=== PATIENT | male | born 1995 | race Caucasian/White ===

== ENCOUNTER 2021-12-30 03:36 | Inpatient (IN) | payer BC, SELFPAY ==
[2021-12-30 04:28] VITALS: BP 124/84; PULSE 85; RESP 16; TEMP 36.4; O2SAT 100; BMI 25.5
[2021-12-30 04:34] VITALS: BP 125/62; PULSE 77; RESP 18; TEMP 36.4; O2SAT 100
--- NOTE | 2021-12-30 05:07 | PC.ADMIT ---
Pt is a 26 years old male transferred from [place], for impatient level of care after Pt reported to the [facility] department of increased depression and intrusive thoughts of SI. Pt is covid negative, Tox negative, VSS, Pt denies SI/HI/AH/VH at this time. Pt appears sad. when asked pt endorsed being sad. Pt reports that his mood has worsened and he experiences a vague feeling to act on these thoughts . Pt reports that he lives with his parents at [place], [place]. 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 He reports reaching out to an online prescriber for help. the prescriber prescribed Sertraline 100mg. Pt reports the medication was helpful initially but now feels that it is making his depression and suicidal thoughts worse/more intense. Admission orders obtained.
[2021-12-30 06:00] VITALS: BP 120/65; PULSE 87; RESP 14; O2SAT 100
[2021-12-30] MEDS: Sertraline HCL 100 MG TABLET PO (08:30)
--- NOTE | 2021-12-30 10:02 | HO.PSYADMNOT ---
HPI Date of Service: 12/30/21 Chief Complaint: MDD, single episode, moderate Sources of Information: patient interviewed, chart reviewed and crisis/core team assessment reviewed HPI Subjective Notes: Monsalve Warning and Conditional Voluntary Narrative: Mr. Vyas is a 26 year-old male with hx of MDD. 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 He was sectioned to [facility]. In the ED his utox was neg. On the unit, pt presents as very pessimistic. He reports being here against his will. He does admit that for the past 2 months he has been feeling increasingly more depressed, hopeless. He reports he has not accomplish anything is his life. He reports he wanted to join the but due to generalized esential tremors he does not qualify. He feels he also screw up his chance of doing something that he likes like joining fire department by disclosing suicidal thoughts. He reports feeling anxious. He reports about 2 months ago he has been seeing prescriber for depression, currently on sertraline, which he reports felt was helpful at beginning but not anymore. He lives with his parents but he reports he does not think they know how depressed he is neither he wants to tell them. He appears very pessimistic in that non of treatment options he thinks will work despite never tried them. He denies hx of VH/AH. He denies hx suggestive of hypomania or lukasz. Past Psychiatric History: Inpatient: none prior OP: sees prescriber online, unknown name suicide attempts: none past med trials: sertraline Medical Evaluation Reviewed: Yes [facility] Medical History (Updated 01/02/22 @ 07:43 by Kamryn Calhoun) Depression Family History: sister with depression Social History: lives with parents and sister. completed HS. working at [employer]. no children. Substance History: none Trauma History: denies. Diagnostics Vital Signs (24Hr): Vital Signs - 24 hr 12/30/21 04:28 12/30/21 04:34 12/30/21 06:00 Temperature 97.6 F 97.5 F Pulse Rate 85 77 87 Respiratory Rate 16 18 14 Blood Pressure 124/84 125/62 120/65 Pulse Oximetry 100 100 100 BMI result Body Mass Index 25.5 Meds/Allergies Meds Home Medications Acetaminophen (Acetaminophen 325 Mg Tablet) 650 mg PO Q6H PRN PRN Reason: Headache/Pain Mild Scale (1-3) Al Hydroxide/Mg Hydroxide (Magnesium Hydrox/Alum Hydrox 30 Ml Oral.Susp) 30 ml PO Q6H PRN PRN Reason: Heartburn/Nausea Clonazepam (Clonazepam 0.5 Mg Tablet) 0.5 mg PO BID [facility] Last Admin: 01/01/22 21:54 Dose: 0.5 mg Documented by: Hydroxyzine HCl (Hydroxyzine Hcl 25 Mg Tablet) 25 mg PO Q6H PRN PRN Reason: Anxiety Magnesium Hydroxide (Milk Of Magnesia 30 Ml Oral.Susp) 30 ml PO DAILY PRN PRN Reason: Constipation Sertraline HCl (Sertraline Hcl 100 Mg Tablet) 100 mg PO DAILY [facility] Last Admin: 01/01/22 08:32 Dose: 100 mg Documented by: Trazodone HCl (Trazodone Hcl 50 Mg Tablet) 50 mg PO BEDTIME PRN PRN Reason: Insomnia Venlafaxine HCl (Venlafaxine Hcl Er 37.5 Mg Cap.Er.24h) 37.5 mg PO DAILY [facility] Last Admin: 01/01/22 08:32 Dose: 37.5 mg Documented by: Allergies Allergies Allergy/AdvReac Type Severity Reaction Status Date / Time cat dander [cats] Allergy Mild Runny Nose Verified 12/30/21 04:26 Mental Status Exam Mental Status Exam Narrative: Appearance: casually groomed, fair hygiene in NAD Behavior:guarded, does not think treatment will help psychomotor:action/resting tremors bilat, and neck Speech:clear, normal rate/rhythm, spontaneous Thought process:linear Thought content:no psychosis, very hopeless/pessimistic outlook of his life. Mood: depressed and anxious Affect: blunted, congruent, SI:passive HI:`none VH/AH:none Delusions:none Insight/judgment:poor x 2. Memory/cog: alert, oriented x 3. grossly intact to conversational testing. Assessment & Plan Assessment & Plan (1) MDD (major depressive disorder), recurrent episode, severe: Status: Acute Code(s): F33.2 - Major depressive disorder, recurrent severe without psychotic features (2) CLARISSA (generalized anxiety disorder): Status: Acute Code(s): F41.1 - Generalized anxiety disorder Plan Mr. Vyas is a 26 year-old male with hx of depression for several years worsened in past 2 months. Passive suicidal ideation but thinks eventually he will end his life- but I don't have a timeline. Very pessimistic outlook about his life, feels everyone else is better off than him. He reports feeling like failure and not having accomplished anything in his life. We discussed risks, benefits and alternative treatment options. Continue sertraline, but ad venlafaxine, clonazepam for anxiety/tremors. PLAN 1. admit to cv- 3 day, 15 minutes checks for safety 2. start venlafaxine 37.5mg po daily, continue sertraline 100mg po daily. 3. start clonazepam 0.5mg po BID. 4. obtain collateral information 5. aftercare planning. Patient educated on: diagnosis and medication risk/benefits Informed Consent: understands Reason for continued inpatient stay Substantial Risk for: harm to self
[2021-12-30] MEDS: LORazepam 1 MG TABLET 2 MG PO (10:10)
--- NOTE | 2021-12-30 13:33 | HO.PM.IMCN ---
History of Present Illness Data of Consult Service Date: 12/30/21 Primary Care Provider: Unknown Physician HPI 26-year-old male with no significant past medical history who is presently admitted to inpatient psych unit for management of depression. He has no acute medical issues at the moment. Review of Systems Review of Systems: Gen: no fever Resp: no sob, no cough CV: no chest, no RODARTE, no leg edema GI: No n/v, no abd pain Neuro: No confusion Psych: no thought of killing himself Yes all other systems are reviewed and are negative [facility] Medical History (Updated 12/30/21 @ 13:39 by Ger Logan MD) Depression Social History Household Members: Family Housing: Apartment Do you presently have visiting nurse or other home services: No Patient Tobacco Use Status: Current everyday Tobacco user Tobacco use type: Cigarette Cigarette Packs Per Day: 1 Cigarettes Per Day: 20.0 Years Smoked: 1 Smoked in Last 30 Days: Yes e-Cigarette/Vaping Use: Currently Using Patient Interested in Nicotine Replacement: Yes Patient Given Instructions on How to Stop Smoking: Yes Date Education Initiated: 12/30/21 Second Hand Smoke Exposure: Yes Use of substances other than those prescribed or required for medical reasons: No Currently Displaying Signs/Symptoms of Drug Intoxication Withdrawal: No Any prior treatment program specific to substance use: No Have you been hit, kicked, punched, or otherwise hurt by someone within the past year? If so, by whom?: No Do you feel safe in your current relationship?: No Is there a partner from a previous relationship who is making you feel unsafe now?: No Are you made to feel afraid or neglected: No Spiritual Healthcare Practices: N/A Moravian Healthcare Practices: N/A Cultural Healthcare Practices: N/A Advance Directives: No Advance Directives Information Provided: No Advance Directives on File: No Do you have thoughts of harming others: None Do you have a plan to hurt others: No Plan Recently lost weight without trying: No Nutrition Risks: No Nutritional Risk Poor oral hygiene: No Meds Allergies Allergy/AdvReac Type Severity Reaction Status Date / Time cat dander [cats] Allergy Mild Runny Nose Verified 12/30/21 04:26 Active Medications: Current Medications Acetaminophen (Acetaminophen 325 Mg Tablet) 650 mg PO Q6H PRN PRN Reason: Headache/Pain Mild Scale (1-3) Al Hydroxide/Mg Hydroxide (Magnesium Hydrox/Alum Hydrox 30 Ml Oral.Susp) 30 ml PO Q6H PRN PRN Reason: Heartburn/Nausea Hydroxyzine HCl (Hydroxyzine Hcl 25 Mg Tablet) 25 mg PO Q6H PRN PRN Reason: Anxiety Lorazepam (Lorazepam 1 Mg Tablet) 1 mg PO Q4H PRN PRN Reason: ciwa 8-12 Lorazepam (Lorazepam 1 Mg Tablet) 2 mg PO Q4H PRN PRN Reason: ciwa 13-16 Magnesium Hydroxide (Milk Of Magnesia 30 Ml Oral.Susp) 30 ml PO DAILY PRN PRN Reason: Constipation Sertraline HCl (Sertraline Hcl 100 Mg Tablet) 100 mg PO DAILY [facility] Last Admin: 12/30/21 08:30 Dose: 100 mg Documented by: Trazodone HCl (Trazodone Hcl 50 Mg Tablet) 50 mg PO BEDTIME PRN PRN Reason: Insomnia Physical Exam Vital Signs and Narrative: Vital Signs: Last Vital Signs Temp 97.5 F 12/30/21 04:34 Pulse 87 12/30/21 06:00 Resp 14 12/30/21 06:00 BP 120/65 12/30/21 06:00 Pulse Ox 100 12/30/21 06:00 BMI result Body Mass Index 25.5 Const: Other: Constitutional: Alert, in no distress, Mental Status: Oriented to person, place and time. Eyes: Pupils are equal, round and reactive to light. Ear, Nose and Throat: Oropharynx clear, mucous membranes moist Respiratory: Clear to auscultation. No wheezing, rales or rhonchi. Cardiovascular: S1 S2 regular. No murmurs, rubs or gallops. Gastrointestinal: Abdomen soft, non-tender, non-distended. Normal bowel sounds.? Neurologic: Cranial nerves II-XII grossly intact. No focal neurological deficits. Moves all extremities spontaneously.? Skin: No rashes or lesions.? Musculoskeletal: No cyanosis or clubbing. Psychiatric: Normal mood and affect? Assessment and Plan (1) Depression: Status: Acute Plan 26 year old male being managed for depression with no acute medical issues Plan: Continue current Psych and behavior, please call if any acuet medical issues arise
[2021-12-30 18:00] VITALS: BP 115/69; BP 119/79; PULSE 68; PULSE 95; RESP 16; TEMP 36.6; TEMP 36.8; O2SAT 99
[2021-12-30] MEDS: Venlafaxine HCl ER 37.5 MG CAP.ER.24H PO (19:49)
[2021-12-31 06:00] VITALS: BP 121/76; PULSE 78; RESP 16; TEMP 36.6; O2SAT 100
[2021-12-31 07:44] LABS: Free T4 (Free Thyroxine) 1.19 ng/dL (0.71-1.85); Thyroid Stimulating Hormone 0.56 uIU/mL (0.32-4.0)
[2021-12-31] MEDS: Sertraline HCL 100 MG TABLET PO (08:52)
[2021-12-31] MEDS: Venlafaxine HCl ER 37.5 MG CAP.ER.24H PO (08:52)
--- NOTE | 2021-12-31 10:47 | HO.PSYCHPN ---
Subjective Subjective Date of Service: 12/31/21 Reason For Visit: MDD, single episode, moderate Subjective Notes: Conditional Voluntary and 3 Day Interim History: Pt continues to present as hopeless, pessimistic. He reports suicidal ideation- no plan or intent. He informed his parents that he was in the hospital but according to him did not give much details. He reports sister called him and was upset about pt not being forthcoming to parents as they are worried about him. He reports I don't want to worry them without seeing that he is actually making them more anxious. He reports fair sleep. blunted affect, mostly in his room, not social with peers. Medication Compliance: Yes Side effects from medications: No Attending Groups: No Review of Systems Review of Systems No chest pain No diarrhea/constipation No hx of TBI essential tremors- reports propanolol not effective. No SOB. Yes all other systems are reviewed and are negative Constitutional: Reports no additional constitutional complaints and Reports poor appetite Mental Status Exam Mental Status Exam Narrative: Appearance: casually groomed, fair hygiene in NAD Behavior:guarded, does not think treatment will help psychomotor:action/resting tremors bilat, and neck Speech:clear, normal rate/rhythm, spontaneous Thought process:linear Thought content:no psychosis, very hopeless/pessimistic outlook of his life. Mood: depressed and anxious Affect: blunted, congruent, SI:passive HI:`none VH/AH:none Delusions:none Insight/judgment:poor x 2. Memory/cog: alert, oriented x 3. grossly intact to conversational testing. Diagnostics Vital Signs (24Hr): Vital Signs - 24 hr 01/01/22 17:20 01/02/22 06:00 Temperature 96.7 F L 97.4 F Pulse Rate 89 72 Respiratory Rate 16 Blood Pressure 109/62 124/76 Pulse Oximetry 100 BMI result Body Mass Index 25.5 Medications Medications Current Medications Acetaminophen (Acetaminophen 325 Mg Tablet) 650 mg PO Q6H PRN PRN Reason: Headache/Pain Mild Scale (1-3) Al Hydroxide/Mg Hydroxide (Magnesium Hydrox/Alum Hydrox 30 Ml Oral.Susp) 30 ml PO Q6H PRN PRN Reason: Heartburn/Nausea Clonazepam (Clonazepam 0.5 Mg Tablet) 0.5 mg PO BID [facility] Last Admin: 01/01/22 21:54 Dose: 0.5 mg Documented by: Hydroxyzine HCl (Hydroxyzine Hcl 25 Mg Tablet) 25 mg PO Q6H PRN PRN Reason: Anxiety Magnesium Hydroxide (Milk Of Magnesia 30 Ml Oral.Susp) 30 ml PO DAILY PRN PRN Reason: Constipation Sertraline HCl (Sertraline Hcl 100 Mg Tablet) 100 mg PO DAILY [facility] Last Admin: 01/01/22 08:32 Dose: 100 mg Documented by: Trazodone HCl (Trazodone Hcl 50 Mg Tablet) 50 mg PO BEDTIME PRN PRN Reason: Insomnia Venlafaxine HCl (Venlafaxine Hcl Er 37.5 Mg Cap.Er.24h) 37.5 mg PO DAILY [facility] Last Admin: 01/01/22 08:32 Dose: 37.5 mg Documented by: Allergies Allergies Allergy/AdvReac Type Severity Reaction Status Date / Time cat dander [cats] Allergy Mild Runny Nose Verified 12/30/21 04:26 Assessment & Plan Assessment & Plan (1) MDD (major depressive disorder), recurrent episode, severe: Status: Acute Code(s): F33.2 - Major depressive disorder, recurrent severe without psychotic features (2) CLARISSA (generalized anxiety disorder): Status: Acute Code(s): F41.1 - Generalized anxiety disorder Plan Mr. Vyas is a 26 year-old male with hx of depression for several years worsened in past 2 months. Passive suicidal ideation but thinks eventually he will end his life- but I don't have a timeline. Very pessimistic outlook about his life, feels everyone else is better off than him. He reports feeling like failure and not having accomplished anything in his life. We discussed risks, benefits and alternative treatment options. Continue sertraline, but ad venlafaxine, clonazepam for anxiety/tremors. PLAN 1. admit to cv- 3 day, 15 minutes checks for safety 2. start venlafaxine 37.5mg po daily, continue sertraline 100mg po daily. 3. start clonazepam 0.5mg po BID. 4. obtain collateral information 5. aftercare planning. 12/31 continue current meds- will increase effexor soon. I spent ___25___ minutes with the patient and/or on the patient floor today, greater than?50% of which was spent counseling/coordinating care. Reason for contiued inpatient stay Substantial Risk for: harm to self
[2021-12-31] MEDS: clonazePAM 0.5 MG TABLET PO ×2 (12:42→20:01)
[2021-12-31 19:57] VITALS: BP 97/51; PULSE 80; RESP 16; TEMP 36.6; O2SAT 98
[2022-01-01 06:00] VITALS: BP 118/74; PULSE 76; RESP 16; TEMP 36.5; O2SAT 100
[2022-01-01] MEDS: clonazePAM 0.5 MG TABLET PO ×2 (08:32→21:54)
[2022-01-01] MEDS: Venlafaxine HCl ER 37.5 MG CAP.ER.24H PO (08:32)
[2022-01-01] MEDS: Sertraline HCL 100 MG TABLET PO (08:32)
--- NOTE | 2022-01-01 11:49 | HO.PSYCHPN ---
Subjective Subjective Date of Service: 01/01/22 Reason For Visit: MDD, single episode, moderate Interim History: Pt reports feeling depressed, less fleeting SI. He reports feeling less anxious. He continues to feel hopeless, mostly in his room, not attending groups, very anxious around others. He reports fair sleep, fair appetite. Medication Compliance: Yes Side effects from medications: No Review of Systems Review of Systems No chest pain No diarrhea/constipation No hx of TBI essential tremors- reports propanolol not effective. No SOB. Yes all other systems are reviewed and are negative Constitutional: Reports no additional constitutional complaints and Reports poor appetite Mental Status Exam Mental Status Exam Narrative: Appearance: casually groomed, fair hygiene in NAD Behavior:guarded, does not think treatment will help psychomotor:action/resting tremors bilat, and neck Speech:clear, normal rate/rhythm, spontaneous Thought process:linear Thought content:no psychosis, very hopeless/pessimistic outlook of his life. Mood: depressed and anxious Affect: blunted, congruent, SI:passive HI:`none VH/AH:none Delusions:none Insight/judgment:poor x 2. Memory/cog: alert, oriented x 3. grossly intact to conversational testing. Diagnostics Vital Signs (24Hr): Vital Signs - 24 hr 01/01/22 17:20 01/02/22 06:00 Temperature 96.7 F L 97.4 F Pulse Rate 89 72 Respiratory Rate 16 Blood Pressure 109/62 124/76 Pulse Oximetry 100 BMI result Body Mass Index 25.5 Medications Medications Current Medications Acetaminophen (Acetaminophen 325 Mg Tablet) 650 mg PO Q6H PRN PRN Reason: Headache/Pain Mild Scale (1-3) Al Hydroxide/Mg Hydroxide (Magnesium Hydrox/Alum Hydrox 30 Ml Oral.Susp) 30 ml PO Q6H PRN PRN Reason: Heartburn/Nausea Clonazepam (Clonazepam 0.5 Mg Tablet) 0.5 mg PO BID [facility] Last Admin: 01/01/22 21:54 Dose: 0.5 mg Documented by: Hydroxyzine HCl (Hydroxyzine Hcl 25 Mg Tablet) 25 mg PO Q6H PRN PRN Reason: Anxiety Magnesium Hydroxide (Milk Of Magnesia 30 Ml Oral.Susp) 30 ml PO DAILY PRN PRN Reason: Constipation Sertraline HCl (Sertraline Hcl 100 Mg Tablet) 100 mg PO DAILY [facility] Last Admin: 01/01/22 08:32 Dose: 100 mg Documented by: Trazodone HCl (Trazodone Hcl 50 Mg Tablet) 50 mg PO BEDTIME PRN PRN Reason: Insomnia Venlafaxine HCl (Venlafaxine Hcl Er 37.5 Mg Cap.Er.24h) 37.5 mg PO DAILY [facility] Last Admin: 01/01/22 08:32 Dose: 37.5 mg Documented by: Allergies Allergies Allergy/AdvReac Type Severity Reaction Status Date / Time cat dander [cats] Allergy Mild Runny Nose Verified 12/30/21 04:26 Assessment & Plan Assessment & Plan (1) MDD (major depressive disorder), recurrent episode, severe: Status: Acute Code(s): F33.2 - Major depressive disorder, recurrent severe without psychotic features (2) CLARISSA (generalized anxiety disorder): Status: Acute Code(s): F41.1 - Generalized anxiety disorder Plan Mr. Vyas is a 26 year-old male with hx of depression for several years worsened in past 2 months. Passive suicidal ideation but thinks eventually he will end his life- but I don't have a timeline. Very pessimistic outlook about his life, feels everyone else is better off than him. He reports feeling like failure and not having accomplished anything in his life. We discussed risks, benefits and alternative treatment options. Continue sertraline, but ad venlafaxine, clonazepam for anxiety/tremors. PLAN 1. admit to cv- 3 day, 15 minutes checks for safety 2. start venlafaxine 37.5mg po daily, continue sertraline 100mg po daily. 3. start clonazepam 0.5mg po BID. 4. obtain collateral information 5. aftercare planning. 12/31 continue current meds- will increase effexor soon. 01/01 continue current meds- increase effexor to 75mg po daily on 01/02 I spent minutes with the patient and/or on the patient floor today, greater than?50% of which was spent counseling/coordinating care. Reason for contiued inpatient stay Substantial Risk for: harm to self
[2022-01-01 17:20] VITALS: BP 109/62; PULSE 89; TEMP 35.9
[2022-01-02 06:00] VITALS: BP 124/76; PULSE 72; RESP 16; TEMP 36.3; O2SAT 100
[2022-01-02] MEDS: Sertraline HCL 100 MG TABLET PO (08:30)
[2022-01-02] MEDS: clonazePAM 0.5 MG TABLET PO ×2 (08:30→20:33)
[2022-01-02] MEDS: Venlafaxine HCl ER 75 MG CAP.ER.24H PO (08:35)
[2022-01-02 09:27] LABS: Folate 13.9 ng/mL (> or = 4.0); Vitamin B12 914 pg/mL (200-900)
[2022-01-02] MEDS: Nicotine Polacrilex 2 MG GUM 4 MG BUCCAL (16:19)
--- NOTE | 2022-01-02 17:45 | HO.PSYCHPN ---
Subjective Subjective Date of Service: 01/02/22 Reason For Visit: MDD, single episode, moderate Subjective Notes: Conditional Voluntary and 3 Day Healthcare Proxy: No Guardianship: No Medical Problems Affecting Mental Status: No Interim History: Reports some relief from anxiety. This is his first intervention with psychiatry. He had tried video psychopharm and started Sertraline. Sx began age [id number] his entire life (dad has hx of tremor). Propranolol did not work and had SE. Self esteem was low and he felt he would never be normal. I did not know who I was or what to do with my life. Reports difficulty in school, feeling bored, but pushed through to graduate . 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 Interests-friends, videos, skateboarding, driving, music and wanting to learn guitar. Discussed neuro eval for tremor, looking at ADHD inventory and [facility] referral which he agrees to. Encouraged to retract TDN, however, SI is tied to his anxiety and he feels trapped as an in pt wanting to do OP work instead. Medication Compliance: Yes Side effects from medications: No Attending Groups: No Review of Systems Acute medical concerns: No Medical Review of Systems: unchanged Review of Systems Psychiatric: Reports anxiety, Reports depression and Reports suicidal ideation (denies) Mental Status Exam Mental Status Exam Patient Appearance: Appropriate Patient Orientation: Person, Place, Time and Situation Level of Consciousness: Alert Patient Behavior: Appropriate, Talkative, Cooperative and Good Eye Contact Mood Description: Depressed Affect Description: Flat Patient Cognition Impaired: No Ability to Follow Directions: Good Speech Pattern: Spontaneous Speech and Soft-Spoken Memory Description: Intact Hallucinations: None Delusions: Not Present Thought Process: Intact Thought Content: positive for Suicidal Ideation (denies) Depressive Symptoms: Increased Anxiety Judgement: Good Diagnostics Vital Signs (24Hr): Vital Signs - 24 hr 01/02/22 06:00 Temperature 97.4 F Pulse Rate 72 Respiratory Rate 16 Blood Pressure 124/76 Pulse Oximetry 100 BMI result Body Mass Index 25.5 Labs Labs: Laboratory Results - last 48 hr 12/31/21 06:57 Vitamin B12 914 H Folate 13.9 Medications Medications Current Medications Acetaminophen (Acetaminophen 325 Mg Tablet) 650 mg PO Q6H PRN PRN Reason: Headache/Pain Mild Scale (1-3) Al Hydroxide/Mg Hydroxide (Magnesium Hydrox/Alum Hydrox 30 Ml Oral.Susp) 30 ml PO Q6H PRN PRN Reason: Heartburn/Nausea Clonazepam (Clonazepam 0.5 Mg Tablet) 0.5 mg PO BID [facility] Last Admin: 01/02/22 08:30 Dose: 0.5 mg Documented by: Hydroxyzine HCl (Hydroxyzine Hcl 25 Mg Tablet) 25 mg PO Q6H PRN PRN Reason: Anxiety Magnesium Hydroxide (Milk Of Magnesia 30 Ml Oral.Susp) 30 ml PO DAILY PRN PRN Reason: Constipation Nicotine Polacrilex (Nicotine Polacrilex 2 Mg Gum) 4 mg BUCCAL Q1H PRN PRN Reason: Nicotine Cravings Last Admin: 01/02/22 16:19 Dose: 4 mg Documented by: Sertraline HCl (Sertraline Hcl 100 Mg Tablet) 100 mg PO DAILY [facility] Last Admin: 01/02/22 08:30 Dose: 100 mg Documented by: Trazodone HCl (Trazodone Hcl 50 Mg Tablet) 50 mg PO BEDTIME PRN PRN Reason: Insomnia Venlafaxine HCl (Venlafaxine Hcl Er 75 Mg Cap.Er.24h) 75 mg PO DAILY [facility] Last Admin: 01/02/22 08:35 Dose: 75 mg Documented by: Allergies Allergies Allergy/AdvReac Type Severity Reaction Status Date / Time cat dander [cats] Allergy Mild Runny Nose Verified 12/30/21 04:26 Assessment & Plan Assessment & Plan (1) MDD (major depressive disorder), recurrent episode, severe: Status: Acute Code(s): F33.2 - Major depressive disorder, recurrent severe without psychotic features (2) CLARISSA (generalized anxiety disorder): Status: Acute Code(s): F41.1 - Generalized anxiety disorder Plan Mr. Vyas is a 26 year-old male with hx of depression for several years worsened in past 2 months. Passive suicidal ideation but thinks eventually he will end his life- but I don't have a timeline. Very pessimistic outlook about his life, feels everyone else is better off than him. He reports feeling like failure and not having accomplished anything in his life. We discussed risks, benefits and alternative treatment options. Continue sertraline, but ad venlafaxine, clonazepam for anxiety/tremors. PLAN 1. admit to cv- 3 day, 15 minutes checks for safety 2. start venlafaxine 37.5mg po daily, continue sertraline 100mg po daily. 3. start clonazepam 0.5mg po BID. 4. obtain collateral information 5. aftercare planning. 12/31 continue current meds- will increase effexor soon. 01/01 continue current meds- increase effexor to 75mg po daily on 01/0201/02/22- Continue current plan of care. I spent minutes with the patient and/or on the patient floor today, greater than?50% of which was spent counseling/coordinating care. Patient educated on: medication risk/benefits and therapeutic strategies Informed Consent: understands and further education needed Reason for contiued inpatient stay Substantial Risk for: harm to self
--- NOTE | 2022-01-02 17:45 | HO.PSYCHPN ---
Subjective Subjective Reason For Visit: MDD, single episode, moderate Diagnostics Vital Signs (24Hr): Vital Signs - 24 hr 01/02/22 06:00 Temperature 97.4 F Pulse Rate 72 Respiratory Rate 16 Blood Pressure 124/76 Pulse Oximetry 100 BMI result Body Mass Index 25.5 Labs Labs: Laboratory Results - last 48 hr 12/31/21 06:57 Vitamin B12 914 H Folate 13.9 Medications Medications Current Medications Acetaminophen (Acetaminophen 325 Mg Tablet) 650 mg PO Q6H PRN PRN Reason: Headache/Pain Mild Scale (1-3) Al Hydroxide/Mg Hydroxide (Magnesium Hydrox/Alum Hydrox 30 Ml Oral.Susp) 30 ml PO Q6H PRN PRN Reason: Heartburn/Nausea Clonazepam (Clonazepam 0.5 Mg Tablet) 0.5 mg PO BID [facility] Last Admin: 01/02/22 08:30 Dose: 0.5 mg Documented by: Hydroxyzine HCl (Hydroxyzine Hcl 25 Mg Tablet) 25 mg PO Q6H PRN PRN Reason: Anxiety Magnesium Hydroxide (Milk Of Magnesia 30 Ml Oral.Susp) 30 ml PO DAILY PRN PRN Reason: Constipation Nicotine Polacrilex (Nicotine Polacrilex 2 Mg Gum) 4 mg BUCCAL Q1H PRN PRN Reason: Nicotine Cravings Last Admin: 01/02/22 16:19 Dose: 4 mg Documented by: Sertraline HCl (Sertraline Hcl 100 Mg Tablet) 100 mg PO DAILY [facility] Last Admin: 01/02/22 08:30 Dose: 100 mg Documented by: Trazodone HCl (Trazodone Hcl 50 Mg Tablet) 50 mg PO BEDTIME PRN PRN Reason: Insomnia Venlafaxine HCl (Venlafaxine Hcl Er 75 Mg Cap.Er.24h) 75 mg PO DAILY [facility] Last Admin: 01/02/22 08:35 Dose: 75 mg Documented by: Allergies Allergies Allergy/AdvReac Type Severity Reaction Status Date / Time cat dander [cats] Allergy Mild Runny Nose Verified 12/30/21 04:26 Assessment & Plan Assessment & Plan (1) MDD (major depressive disorder), recurrent episode, severe: Status: Acute Code(s): F33.2 - Major depressive disorder, recurrent severe without psychotic features (2) CLARISSA (generalized anxiety disorder): Status: Acute Code(s): F41.1 - Generalized anxiety disorder Plan Mr. Vyas is a 26 year-old male with hx of depression for several years worsened in past 2 months. Passive suicidal ideation but thinks eventually he will end his life- but I don't have a timeline. Very pessimistic outlook about his life, feels everyone else is better off than him. He reports feeling like failure and not having accomplished anything in his life. We discussed risks, benefits and alternative treatment options. Continue sertraline, but ad venlafaxine, clonazepam for anxiety/tremors. PLAN 1. admit to [facility]- 3 day, 15 minutes checks for safety 2. start venlafaxine 37.5mg po daily, continue sertraline 100mg po daily. 3. start clonazepam 0.5mg po BID. 4. obtain collateral information 5. aftercare planning. 12/31 continue current meds- will increase effexor soon. 01/01 continue current meds- increase effexor to 75mg po daily on 01/02 I spent minutes with the patient and/or on the patient floor today, greater than?50% of which was spent counseling/coordinating care.
[2022-01-02 19:30] VITALS: BP 91/52; PULSE 97; TEMP 36.5
[2022-01-03 06:00] VITALS: BP 100/52; PULSE 83; RESP 14; TEMP 36.1; O2SAT 98
[2022-01-03] MEDS: Sertraline HCL 100 MG TABLET PO (08:46)
[2022-01-03] MEDS: clonazePAM 0.5 MG TABLET PO (08:46)
[2022-01-03] MEDS: Venlafaxine HCl ER 75 MG CAP.ER.24H PO (08:46)
[2022-01-03 17:48] VITALS: BP 117/57; PULSE 67; RESP 16; TEMP 36.1; O2SAT 100
--- NOTE | 2022-01-03 19:31 | P.PNPSI_ITS ---
Subjective Subjective Date of Service: 01/03/22 Reason For Visit: MDD, single episode, moderate Subjective Notes: Conditional Voluntary and 3 Day Healthcare Proxy: No Guardianship: No Medical Problems Affecting Mental Status: No Interim History: Review of medications. Pt had several thoughtful questions. Reports an increase in anxiety Discussed retraction of TDN. Pt not wanting to remain in pt. Aware he may return at any time. Denies SI Medication Compliance: Yes Side effects from medications: No Attending Groups: Yes Review of Systems Acute medical concerns: No Medical Review of Systems: unchanged Review of Systems Psychiatric: Reports anxiety, Reports depression and Reports suicidal ideation (denies) Mental Status Exam Mental Status Exam Patient Appearance: Appropriate Patient Orientation: Person, Place, Time and Situation Level of Consciousness: Alert Patient Behavior: Appropriate, Talkative, Cooperative and Good Eye Contact Mood Description: Depressed Affect Description: Flat Patient Cognition Impaired: No Ability to Follow Directions: Good Speech Pattern: Spontaneous Speech and Soft-Spoken Memory Description: Intact Hallucinations: None Delusions: Not Present Thought Process: Intact Thought Content: positive for Suicidal Ideation (denies) Depressive Symptoms: Increased Anxiety Judgement: Good Diagnostics Vital Signs (24Hr): Vital Signs - 24 hr 01/03/22 06:00 01/03/22 17:48 Temperature 97.0 F 97 F Pulse Rate 83 67 Respiratory Rate 14 16 Blood Pressure 100/52 L 117/57 L Pulse Oximetry 98 100 BMI result Body Mass Index 25.5 Labs Labs: Laboratory Results - last 48 hr 12/31/21 06:57 Vitamin B12 914 H Folate 13.9 Medications Medications Current Medications Acetaminophen (Acetaminophen 325 Mg Tablet) 650 mg PO Q6H PRN PRN Reason: Headache/Pain Mild Scale (1-3) Al Hydroxide/Mg Hydroxide (Magnesium Hydrox/Alum Hydrox 30 Ml Oral.Susp) 30 ml PO Q6H PRN PRN Reason: Heartburn/Nausea Clonazepam (Clonazepam 1 Mg Tablet) 1 mg PO BID [facility] Hydroxyzine HCl (Hydroxyzine Hcl 25 Mg Tablet) 25 mg PO Q6H PRN PRN Reason: Anxiety Magnesium Hydroxide (Milk Of Magnesia 30 Ml Oral.Susp) 30 ml PO DAILY PRN PRN Reason: Constipation Nicotine Polacrilex (Nicotine Polacrilex 2 Mg Gum) 4 mg BUCCAL Q1H PRN PRN Reason: Nicotine Cravings Last Admin: 01/02/22 16:19 Dose: 4 mg Documented by: Sertraline HCl (Sertraline Hcl 100 Mg Tablet) 100 mg PO DAILY [facility] Last Admin: 01/03/22 08:46 Dose: 100 mg Documented by: Trazodone HCl (Trazodone Hcl 50 Mg Tablet) 50 mg PO BEDTIME PRN PRN Reason: Insomnia Venlafaxine HCl (Venlafaxine Hcl Er 75 Mg Cap.Er.24h) 75 mg PO DAILY [facility] Last Admin: 01/03/22 08:46 Dose: 75 mg Documented by: Allergies Allergies Allergy/AdvReac Type Severity Reaction Status Date / Time cat dander [cats] Allergy Mild Runny Nose Verified 12/30/21 04:26 Assessment & Plan Assessment & Plan (1) MDD (major depressive disorder), recurrent episode, severe: Status: Acute Code(s): F33.2 - Major depressive disorder, recurrent severe without psychotic features (2) CLARISSA (generalized anxiety disorder): Status: Acute Code(s): F41.1 - Generalized anxiety disorder Plan Mr. Vyas is a 26 year-old male with hx of depression for several years worsened in past 2 months. Passive suicidal ideation but thinks eventually he will end his life- but I don't have a timeline. Very pessimistic outlook about his life, feels everyone else is better off than him. He reports feeling like failure and not having accomplished anything in his life. We discussed risks, benefits and alternative treatment options. Continue sertraline, but ad venlafaxine, clonazepam for anxiety/tremors. PLAN 1. admit to [facility]- 3 day, 15 minutes checks for safety 2. start venlafaxine 37.5mg po daily, continue sertraline 100mg po daily. 3. start clonazepam 0.5mg po BID. 4. obtain collateral information 5. aftercare planning. 12/31 continue current meds- will increase effexor soon. 01/01 continue current meds- increase effexor to 75mg po daily on 01/0201/02/22- Continue current plan of care. 01/03/22- Increase Klonopin to 1 mg bid I spent minutes with the patient and/or on the patient floor today, greater than?50% of which was spent counseling/coordinating care. Patient educated on: medication risk/benefits Informed Consent: understands and further education needed Reason for contiued inpatient stay Substantial Risk for: harm to self, inability to function and rapid decompensation
[2022-01-03] MEDS: clonazePAM 1 MG TABLET PO (19:41)
[2022-01-03] MEDS: traZODone HCL 50 MG TABLET PO (20:46)
[2022-01-04 06:00] VITALS: BP 111/56; PULSE 67; RESP 16; TEMP 36.4; O2SAT 96
[2022-01-04] MEDS: Sertraline HCL 100 MG TABLET PO (09:11)
[2022-01-04] MEDS: clonazePAM 1 MG TABLET PO (09:11)
[2022-01-04] MEDS: Venlafaxine HCl ER 75 MG CAP.ER.24H PO (09:11)
--- NOTE | 2022-01-04 09:22 | PM.NEUROCN ---
History of Present Illness Data of Consult Service Date: 01/04/22 Primary Care Provider: Unknown Physician HPI Reason for consult: Tremor 26 years old man who I was asked to see for tremor. At this time he was on psychiatric floor with severe depression and suicidal ideation. He said that he had tremor for as long as he could remember. His father also suffered from tremor. His father was taking propanolol and probably also primidone. He tried propanolol once a day in that apparently did not help him. Tremor was affecting his day-to-day activity and especially picking up her drinking eating it. There was no pain numbness and tingling in hands or arms. There was no bowel bladder difficulty. Review of Systems Review of Systems: There was no pain numbness or tingling in neck or hands or arms. [facility] Past Medical History Medical History (Updated 01/04/22 @ 09:30 by Neftaly Lan MD) Depression Social History Social History Household Members: Family Housing: Apartment Do you presently have visiting nurse or other home services: No Patient Tobacco Use Status: Current everyday Tobacco user Tobacco use type: Cigarette Cigarette Packs Per Day: 1 Cigarettes Per Day: 20.0 Years Smoked: 1 Smoked in Last 30 Days: Yes e-Cigarette/Vaping Use: Currently Using Patient Interested in Nicotine Replacement: Yes Patient Given Instructions on How to Stop Smoking: Yes Date Education Initiated: 12/30/21 Second Hand Smoke Exposure: Yes Use of substances other than those prescribed or required for medical reasons: No Currently Displaying Signs/Symptoms of Drug Intoxication Withdrawal: No Any prior treatment program specific to substance use: No Have you been hit, kicked, punched, or otherwise hurt by someone within the past year? If so, by whom?: No Do you feel safe in your current relationship?: No Is there a partner from a previous relationship who is making you feel unsafe now?: No Are you made to feel afraid or neglected: No Spiritual Healthcare Practices: N/A Confucianist Healthcare Practices: N/A Cultural Healthcare Practices: N/A Advance Directives: No Advance Directives Information Provided: No Advance Directives on File: No Do you have thoughts of harming others: None Do you have a plan to hurt others: No Plan Recently lost weight without trying: No Nutrition Risks: No Nutritional Risk Poor oral hygiene: No service: No Sexual orientation: Straight/Heterosexual Meds Allergies Allergy/AdvReac Type Severity Reaction Status Date / Time cat dander [cats] Allergy Mild Runny Nose Verified 12/30/21 04:26 Active Medications: Current Medications Acetaminophen (Acetaminophen 325 Mg Tablet) 650 mg PO Q6H PRN PRN Reason: Headache/Pain Mild Scale (1-3) Al Hydroxide/Mg Hydroxide (Magnesium Hydrox/Alum Hydrox 30 Ml Oral.Susp) 30 ml PO Q6H PRN PRN Reason: Heartburn/Nausea Clonazepam (Clonazepam 1 Mg Tablet) 1 mg PO BID [facility] Last Admin: 01/04/22 09:11 Dose: 1 mg Documented by: Hydroxyzine HCl (Hydroxyzine Hcl 25 Mg Tablet) 25 mg PO Q6H PRN PRN Reason: Anxiety Magnesium Hydroxide (Milk Of Magnesia 30 Ml Oral.Susp) 30 ml PO DAILY PRN PRN Reason: Constipation Nicotine Polacrilex (Nicotine Polacrilex 2 Mg Gum) 4 mg BUCCAL Q1H PRN PRN Reason: Nicotine Cravings Last Admin: 01/02/22 16:19 Dose: 4 mg Documented by: Sertraline HCl (Sertraline Hcl 100 Mg Tablet) 100 mg PO DAILY [facility] Last Admin: 01/04/22 09:11 Dose: 100 mg Documented by: Trazodone HCl (Trazodone Hcl 50 Mg Tablet) 50 mg PO BEDTIME PRN PRN Reason: Insomnia Last Admin: 01/03/22 20:46 Dose: 50 mg Documented by: Venlafaxine HCl (Venlafaxine Hcl Er 75 Mg Cap.Er.24h) 75 mg PO DAILY [facility] Last Admin: 01/04/22 09:11 Dose: 75 mg Documented by: Home Medications Medication Instructions Recorded Confirmed Last Taken Type sertraline 50 mg tablet 1 tab PO DAILY 12/30/21 12/30/21 Unknown History sertraline 50 mg tablet 1 tab PO DAILY 12/30/21 12/30/21 Unknown History Physical Exam Vital Signs: Vital Signs: Last Vital Signs Temp 97.6 F 01/04/22 06:00 Pulse 67 01/04/22 06:00 Resp 16 01/04/22 06:00 BP 111/56 L 01/04/22 06:00 Pulse Ox 96 01/04/22 06:00 BMI result Body Mass Index 25.5 Neuro: Other: Alert and awake with normal spontaneity of speech fluency comprehension and depressed affect. There was moderate postural and action tremor affecting both hands. There was moderate speech tremor. Facial expression blinking were intact. He was able to get up and walk around including walking heel to toe without difficulty. Deep tendon reflexes were trace to 1+ with flexor plantars. [id number] testing revealed bilateral tremor. Paraspinal muscles were moderately is tense. Assessment and Plan (1) Familial tremor: Status: Acute 26 years old man with tremor affecting his hands for as long as he could remember. His father also suffered from similar tremor. 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 In these cases and especially in young age we always like to make sure that treatable causes or fixable causes a not missed. For that reason, I recommend obtaining serum ceruloplasmin and copper levels and 24 hour urine copper level. As far as treatment is concerned, very few medicines are available. Beta-blockers usually are the 1st chores because of their anxiolytic properties. He said that he took a dose of propanolol for a wild and it did not help. I would not consider that complete failure of beta-blockers. Moderate this time we could try primidone 50 mg twice a day. He was educated about this condition. He can also read about it at [email or web address]. Procedures Date of Service Date of Service: 01/04/22
--- NOTE | 2022-01-04 11:17 | P.DS_ITS ---
DS: Providers Provider Date of Service: 01/04/22 Date of admission: 12/30/21 03:36 Date of discharge: 01/04/22 Primary care physician: Unknown Physician Admitting clinician: Kamryn Calhoun Attending physician on admission: Kamryn Calhoun Consults: 12/30/21 04:39 Consult to Hospitalist Routine Consulting Provider: Hospitalist Reason For Exam: new admit from [place] 01/03/22 10:43 Consult to Neurology Routine Consulting Provider: [facility] Reason for consultation: Essential Tremor, severe, since childhood, propranolol ineffective Has provider been notified: Yes Attending physician on discharge: Estephanie Hassan Discharging clinician: Estephanie Hassan DS: Diagnosis Discharge Diagnosis (1) Familial tremor: Status: Acute DS: Medications Discharge Medications Home Medications: Previous Rx's Medication Instructions Recorded clonazepam 1 mg tablet 1 mg PO BID #14 tab 01/04/22 nicotine (polacrilex) 2 mg gum 4 mg BUCCAL Q1H PRN #60 ea 01/04/22 sertraline 100 mg tablet 100 mg PO DAILY #15 tab 01/04/22 trazodone 50 mg tablet 50 mg PO BEDTIME PRN #15 tab 01/04/22 venlafaxine 37.5 mg 37.5 mg PO DAILY #15 cap 01/04/22 capsule,extended release 24 hr venlafaxine 75 mg capsule,extended 75 mg PO DAILY #15 cap 01/04/22 release 24 hr Mental Status Exam Mental Status Exam Patient Appearance: Appropriate Patient Orientation: Person, Place, Time and Situation Level of Consciousness: Alert Patient Behavior: Appropriate, Talkative, Cooperative and Good Eye Contact Mood Description: Depressed Affect Description: Flat Patient Cognition Impaired: No Ability to Follow Directions: Good Speech Pattern: Spontaneous Speech and Soft-Spoken Memory Description: Intact Hallucinations: None Delusions: Not Present Thought Process: Intact Thought Content: positive for Suicidal Ideation (denies) Depressive Symptoms: Increased Anxiety Judgement: Good Data Data Completed and Pending Completed studies during hospitalization [Text1]: 12/31/21 12/31/21 06:57 06:57 Magnesium 2.0 Vitamin B12 914 H Folate 13.9 TSH 0.56 Free T4 1.19 DS: Summary Hospital Course Hospital Course: Admission to adult psychiatry to address symptoms of depression, anxiety, suicidality, essential tremor. Pt signed a three day notice of intent upon admission. Neurology met with pt to address symptoms of tremor-consult sent to PCP office to follow up with as pt had signed a three day notice. Klonopin and Venlafaxine ER initiated symptoms of depression/anxiety. Sertraline remained at 100 mg daily. Time spent discussing smoking cessation with patient: 3 to 10 minutes Status at Discharge Functional status at discharge: independent ambulation Overall status at discharge: patient is progressing back to baseline Time Spent with Patient Time attestation: Total time spent providing and/or coordinating discharge services: 35 Time spent: Greater than 30 minutes Discharge Plan Discharge Patient Disposition: Home, Self-Care Discharge Diagnosis: Recurrent, Severe Major Depression Generalized Anxiety Disorder Essential Tremor Referrals: RACHEL ALVA MD [Other] - 01/05/22 10:00 am (IN OFFICE ) [facility] [Other] - Tomorrow (Referral for Outpatient therapy and psychiatry services. Patient should follow-up with [facility] for outpatient appointments.) Discharge Medications: New venlafaxine 75 mg Capsule,Extended Release 24hr 75 mg PO DAILY Qty: 15 1RF trazodone 50 mg Tablet 50 mg PO BEDTIME PRN (Reason: Insomnia) Qty: 15 1RF nicotine (polacrilex) 2 mg Gum 4 mg buccal Q1H PRN (Reason: Nicotine Cravings) Qty: 60 0RF sertraline 100 mg Tablet 100 mg PO DAILY Qty: 15 1RF clonazepam 1 mg Tablet 1 mg PO BID Qty: 14 4RF venlafaxine 37.5 mg capsule,extended release 24hr 37.5 mg PO DAILY Qty: 15 1RF Rx Instructions: Take 1 37.5 mg cap and 1 75 mg cap daily for a total of 112.5 mg daily. Discontinued sertraline 50 mg tablet 1 tab PO DAILY 0RF sertraline 50 mg tablet 1 tab PO DAILY 0RF Discharge Orders: Discharge Order (Routine); Ordered 01/04/22 Ordered By: Estephanie Hassan Diet: advance to usual diet Activity on Discharge: As tolerated Stand Alone Forms: Patient Portal Discharge page, Community Support Care Plan Goals: Stabilization of Mood Health Concerns: Severe, recurrent major depression Generalized anxiety disorder Essential Tremor Plan of Treatment: You are leaving after filing a three day notice. We believe you would benefit from more time in the hospital working on symptoms. Attend scheduled follow up appointments Take medications as directed. We have sent a months supply to Rick Farah MA If your symptoms increase please contact the local crisis team, [facility], at . Call and or return as needed If you have questions/problems with your medications prior to your outpatient appointments feel free to call [phone]. Assessment: Non-psychotic, non-suicidal. Anxious, with dysphoria, however, Theron is not wanting to remain in in-patient treatment. Discharge Date/Time: 01/04/22 13:20
== END 2022-01-04 13:20 | disposition home or self-care (01) | DRG 751 ==
LOC: HO.PADLT16 04:22 → HO.PM5 04:22
PROVIDERS: Registered Nurse; Admitting Provider Psychiatry & Neurology Psychiatry; Visit Provider Clinical Nurse Specialist Psychiatric/Mental Health, Adult
DX: F33.2 Major depressive disorder, recurrent severe without psychotic features (principal); R45.851 Suicidal ideations; F41.1 Generalized anxiety disorder; F17.210 Nicotine dependence, cigarettes, uncomplicated; Z71.6 Tobacco abuse counseling; Z79.899 Other long term (current) drug therapy
CPT/HCPCS: 36415; 82607; 82746; 83735; 84439; 84443